=== PATIENT | male | born 1965 | race Caucasian/White ===

== ENCOUNTER 2017-09-14 17:32 | Emergency (ER) | payer BC, OTHER ==
[~2017-09-14] VITALS: Ht 185.4 cm; Wt 90.7 kg
[2017-09-14 17:46] VITALS: BP_SYST 145
[2017-09-14 20:05] LABS: BASOPHILS % (AUTO) 0.4 % (0.0-2.0); EOSINOPHILS # (AUTO) 0.1 K/uL (0.0-0.4); EOSINOPHILS % (AUTO) 1.7 % (0.0-4.0); HEMOGLOBIN 14.5 g/dL (14.0-18.0); LYMPHOCYTES # (AUTO) 2.2 K/uL (1.0-5.5); LYMPHOCYTES % (AUTO) 28.6 % (20.5-51.5); MEAN CORPUSCULAR HEMOGLOBIN 31 pg (27-31); MEAN CORPUSCULAR HGB CONC 33 % (32-36); MEAN CORPUSCULAR VOLUME 93 fL (79.0-98.0); MONOCYTES # (AUTO) 0.5 K/uL (0.0-1.0); NEUTROPHILS % (AUTO) 62.3 % (40.0-70.0); PLATELET COUNT (AUTO) 217 K/uL (130-430); RED BLOOD CELL COUNT(AUTO) 4.71 MIL/uL (4.2-6.2); RED CELL DISTRIBUTION WIDTH 12.6 % (9.0-15.0); WHITE BLOOD COUNT (AUTO) 7.8 K/uL (4.8-10.8)
[2017-09-14 20:13] LABS: CALCIUM 9.4 mg/dL (8.4-11.0); CREATININE 1.05 mg/dL (0.55-1.30); POTASSIUM 4.4 mmol/L (3.5-5.1)
[2017-09-14 20:18] LABS: ALBUMIN 3.9 g/dL (3.4-4.8); TOTAL BILIRUBIN 0.7 mg/dL (0.0-1.0)
== END 2017-09-14 22:14 | disposition left against medical advice (07) ==
LOC: SED 17:32
DX: R10.9 Unspecified abdominal pain (principal); Z53.21 Procedure and treatment not carried out due to patient leaving prior to being seen by health care provider
CPT/HCPCS: 36415; 80053; 83690-TC; 85025; 99281

== ENCOUNTER 2018-01-05 12:59 | Outpatient (CLI) | payer OTHER | END 2018-01-05 20:00 | disposition home or self-care (01) | LOC: SUS 12:59 | PROVIDERS: ATTEND Specialist | DX: N28.1 Cyst of kidney, acquired (principal) | CPT/HCPCS: 76770 ==

== ENCOUNTER 2018-06-30 11:15 | Outpatient (CLI) | payer OTHER | END 2018-06-30 20:04 | disposition home or self-care (01) | LOC: SUS 11:15 | PROVIDERS: ATTEND Specialist | DX: N28.1 Cyst of kidney, acquired (principal) | CPT/HCPCS: 76770 ==